=== PATIENT | female | born 1950 | race Asian ===

== ENCOUNTER 2018-06-13 01:24 | Emergency (ER) | payer OTHER, MEDICAID ==
[~2018-06-13] VITALS: Ht 165.1 cm; Wt 81.6 kg
[2018-06-13 01:29] VITALS: BP 155/90
--- NOTE | 2018-06-13 01:29 | NUR ---
TO BED # 2 AMBULATORY, REPORT GIVEN TO BRISSA GUIDRY.
--- NOTE | 2018-06-13 01:30 | NUR ---
PATIENT PRESENTS TO ED WITH C/O FLANK PAIN X 2 HOURS. PT STATES SHE WOKE UP IN PAIN. PT PAIN LEVEL IS 8/10 AT THIS. DENIES N/V/D OR FEVER AT THIS TIME; SKIN IS PINK/WARM/DRY; AAOX4 WITH EVEN AND STEADY GAIT, VSS; PATIENT POSITIONED FOR COMFORT; HOB ELEVATED; BEDRAILS UP X2; BED DOWN. ER MD MADE AWARE OF PT STATUS.
[2018-06-13] MEDS ORDERED: KETOROLAC 30 MG/ML VIAL IVP ONE (01:50)
[2018-06-13] MEDS ORDERED: NACL 0.9% 500 ML IV ONE (01:50)
[2018-06-13] MEDS ORDERED: ONDANSETRON 4 MG/2 ML VIAL IVP ONE (01:50)
--- NOTE | 2018-06-13 02:30 | NUR ---
PT LYING IN BED, VITALS STABLE. FAMILY AT BEDSIDE.
[2018-06-13 03:52] VITALS: BP 148/85
--- NOTE | 2018-06-13 03:52 | NUR ---
Patient discharged with v/s stable. Written and verbal after care instructions given and explained. Patient alert, oriented and verbalized understanding of instructions. Ambulatory with steady gait. All questions addressed prior to discharge. ID band removed. Patient advised to follow up with PMD. Rx of LACTULOSE, MINERAL OIL, MOTRIN was given. Patient educated on indication of medication including possible reaction and side effects. Opportunity to ask questions provided and answered.
== END 2018-06-13 03:52 | disposition home or self-care (01) ==
LOC: MED 01:24
DX: K59.09 Other constipation (principal); R51 Headache; R11.0 Nausea; Z88.8 Allergy status to other drugs, medicaments and biological substances
CPT/HCPCS: 74176; 81002; 81025; 96374; 96375; 99284; J1885; J2405; J7030